=== PATIENT | male | born 1935 | race Two or more races ===

== ENCOUNTER 2016-10-19 16:44 | Emergency (ER) | payer MEDICAID, MEDICARE ==
[~2016-10-19] VITALS: Ht 157.5 cm; Wt 63.5 kg
[2016-10-19 17:28] LABS: Basophils # (auto) 0 uL; Basophils % (auto) 0.1 % (0.0-2.0); CONDITION Y; Eosinophils # (auto) 0 uL; Hematocrit 37.7 % (41.0-53.0); Hemoglobin 12.8 g/dL (13.5-17.5); Lymphocytes # (auto) 0.9 uL; Lymphocytes % (auto) 9.8 % (10.0-50.0); Mean Corpuscular Hemoglobin 29.8 pg (28.0-32.0); Mean Corpuscular Hgb Conc. 33.9 g/dL (32.0-36.0); Monocytes # (auto) 0.3 uL; Monocytes % (auto) 3.6 % (0.0-12.0); Neutrophils # (auto) 7.9 uL; Neutrophils % (auto) 86.5 % (37.0-80.0); Platelet Count (auto) 275 10^3/uL (140-450); Red Cell Distribution Width 15.1 % (11.6-16.0); White Blood Cell 9.1 10^3/uL (4.4-10.8)
[2016-10-19 20:08] LABS: Albumin 3.5 g/dL (3.4-5.0); Amylase 89 U/L (25-115); Anion Gap 10 (5-15); Aspartate Aminotransferase 26 U/L (15-37); Blood Urea Nitrogen 15 mg/dL (7-18); Calcium 7.7 mg/dL (8.5-10.1); Carbon Dioxide 23 mmol/L (21-32); Chloride 107 mmol/L (98-107); GFR African American 128 mL/min; GFR Non-African American 106 mL/min; Glucose 146 mg/dL (74-106); Potassium 3.8 mmol/L (3.5-5.1); Sodium 140 mmol/L (136-145)
[2016-10-19 20:19] LABS: Alkaline Phosphatase 111 U/L (45-117); Bilirubin, Total 0.3 mg/dL (0.2-1.0); Total Protein 7.6 g/dL (6.4-8.2)
[2016-10-20] MEDS ORDERED: ONDANSETRON HCL 4 MG/2 ML VIAL IV ONE (08:00)
[2016-10-20] MEDS ORDERED: MORPHINE SULF INJ 2 MG/ML SYRINGE 1ML IV ONE (08:00)
[2016-10-20 09:25] LABS: Urine Bilirubin Negative (Negative); Urine Color Yellow (Yellow); Urine Glucose Normal (Normal); Urine Ketone TRACE (Negative); Urine Mucus FEW (None Seen); Urine Nitrite Negative (Negative); Urine RBC 10 /hpf (0 - 3); Urine Squamous Epithelial Cell FEW /hpf (<5); Urine Urobilinogen Normal (Negative); Urine pH 5.5 (5.0-8.0)
[2016-10-20 09:26] LABS: Urine Blood 2+ /uL (Negative)
[2016-10-20 10:12] VITALS: BP 105/55
== END 2016-10-20 10:12 | disposition other institution (70) ==
LOC: ER 16:50
DX: K80.20 Calculus of gallbladder without cholecystitis without obstruction (principal); J98.11 Atelectasis; N40.1 Benign prostatic hyperplasia with lower urinary tract symptoms; R39.16 Straining to void; N28.1 Cyst of kidney, acquired; I11.0 Hypertensive heart disease with heart failure; I50.9 Heart failure, unspecified; Z87.442 Personal history of urinary calculi; Z87.440 Personal history of urinary (tract) infections
CPT/HCPCS: 36415; 74176; 80053; 81001; 82150; 83690; 84484; 85025; 93005; 96374; 96375; 99285; J2270; J2405

== ENCOUNTER 2016-10-22 09:14 | Inpatient (IN) | payer MEDICAID ==
[~2016-10-22] VITALS: Ht 160 cm; Wt 65.1 kg
[2016-10-22] MEDS ORDERED: SODIUM CHLORIDE 0.9% 1,000 ML IV ONE ×3 (10:00→12:30)
[2016-10-22] MEDS ORDERED: SODIUM CHLORIDE 0.9% 1,000 ML IVB ONE (10:27)
[2016-10-22 10:40] LABS: Basophils # (auto) 0 uL; CONDITION Y; Eosinophils # (auto) 0 uL; Hematocrit 34.2 % (41.0-53.0); Hemoglobin 11.7 g/dL (13.5-17.5); Lymphocytes # (auto) 0.3 uL; Lymphocytes % (auto) 2.5 % (10.0-50.0); Mean Corpuscular Hemoglobin 30.1 pg (28.0-32.0); Mean Corpuscular Hgb Conc. 34.3 g/dL (32.0-36.0); Mean Corpuscular Volume 87.8 fL (80.0-100.0); Mean Platelet Volume 8.9 fL (7.4-10.4); Monocytes # (auto) 0.3 uL; Monocytes % (auto) 2.9 % (0.0-12.0); Neutrophils # (auto) 9.9 uL; Neutrophils % (auto) 94.6 % (37.0-80.0); Platelet Count (auto) 160 10^3/uL (140-450); Red Cell Distribution Width 15.2 % (11.6-16.0); SUSPECT SEE PRINTOUT; White Blood Cell 10.5 10^3/uL (4.4-10.8)
[2016-10-22 10:59] LABS: Albumin 2.6 g/dL (3.4-5.0); BUN/Creatinine Ratio 18.1; Bilirubin, Total 2.2 mg/dL (0.2-1.0); Calcium 7.4 mg/dL (8.5-10.1); Magnesium 2.2 mg/dL (1.6-2.6); Potassium 3.2 mmol/L (3.5-5.1); Total Protein 6.1 g/dL (6.4-8.2)
[2016-10-22 11:29] LABS: REFLEX LACTIC ACID YES OR NO YES
[2016-10-22] MEDS ORDERED: POTASSIUM CHL 10% (20 MEQ/15ML) ORAL SOLN PO ONE (11:30)
[2016-10-22] MEDS ORDERED: cefTRIAXone 1GM/50ML D5W 50 ML IV ONE (11:30)
[2016-10-22] MEDS ORDERED: SODIUM CHLORIDE 0.9% 1,000 ML IV SCH (12:23)
[2016-10-22] MEDS ORDERED: NITROGLYCERIN 0.4 MG SL TAB SL PRN (12:30)
[2016-10-22] MEDS ORDERED: MORPHINE SULF INJ 2 MG/ML SYRINGE 1ML IV PRN ×2 (12:30)
[2016-10-22] MEDS ORDERED: PANTOPRAZOLE SODIUM 40 MG/10 ML VIAL IV ONE (12:30)
[2016-10-22] MEDS ORDERED: PROMETHAZINE HCL 25 MG/ML 1ML IV PRN (12:30)
[2016-10-22] MEDS ORDERED: PIPERACILLIN-TAZOB 3.375GM 100 ML IV ONE (12:30)
[2016-10-22] MEDS: NOREPINEPHRINE BITARTRATE 250 ML IV SCH (12:47)
[2016-10-22] MEDS ORDERED: metroNIDAZOLE 500MG/100ML 100 ML IV ONE (13:15)
[2016-10-22] MEDS ORDERED: MORPHINE SULFATE 4 MG/ML SYRG IV PRN ×2 (14:20→14:21)
[2016-10-22] MEDS: metroNIDAZOLE 500MG/100ML 100 ML IV SCH (18:43)
[2016-10-22] MEDS: PIPERACILLIN-TAZOB 3.375GM 100 ML IV SCH (18:43)
[2016-10-22 19:55] LABS: INR 1.2 (0.9-1.15); Partial Thromboplastin Time 32.7 sec (22.64-33.71)
[2016-10-22 20:04] LABS: Prothrombin Time 13.1 sec (9.37-12.3)
[2016-10-23] MEDS ORDERED: ALBUTEROL SULF 2.5 MG/0.5ML(0.5%) NEB SOLN ONE (00:59)
[2016-10-23] MEDS ORDERED: IPRATROPIUM BROM 0.5 MG/2.5ML INH SOL ONE (01:00)
[2016-10-23] MEDS ORDERED: DEXAMETHASONE SOD PHOS 4 MG/1ML SDV INJ ONE (02:58)
[2016-10-23 05:46] LABS: Temperature: 23.5 C (20.0-25.0)
[2016-10-23] MEDS: PIPERACILLIN-TAZOB 3.375GM 100 ML IV SCH ×4 (06:20→19:38)
[2016-10-23] MEDS: metroNIDAZOLE 500MG/100ML 100 ML IV SCH ×4 (06:20→18:43)
[2016-10-23 06:38] LABS: Albumin 2.3 g/dL (3.4-5.0); Bilirubin, Total 3.2 mg/dL (0.2-1.0); Calcium 6.9 mg/dL (8.5-10.1); Total Protein 5.8 g/dL (6.4-8.2)
[2016-10-23 08:27] LABS: Basophils # (auto) 0 uL; Eosinophils # (auto) 0 uL; Eosinophils % (auto) 0.2 % (0.0-7.0); Hematocrit 33.9 % (41.0-53.0); Hemoglobin 11.3 g/dL (13.5-17.5); Lymphocytes # (auto) 0.9 uL; Lymphocytes % (auto) 6.3 % (10.0-50.0); Mean Corpuscular Hemoglobin 29.9 pg (28.0-32.0); Mean Corpuscular Hgb Conc. 33.5 g/dL (32.0-36.0); Mean Corpuscular Volume 89.3 fL (80.0-100.0); Mean Platelet Volume 9.4 fL (7.4-10.4); Monocytes # (auto) 1.1 uL; Monocytes % (auto) 7.5 % (0.0-12.0); Neutrophils # (auto) 12.6 uL; Platelet Count (auto) 174 10^3/uL (140-450); Red Cell Distribution Width 15.5 % (11.6-16.0); White Blood Cell 14.7 10^3/uL (4.4-10.8)
[2016-10-23] MEDS: NOREPINEPHRINE BITARTRATE 250 ML IV SCH (12:00)
[2016-10-23] MEDS: PANTOPRAZOLE SODIUM 40 MG/10 ML VIAL IV SCH (12:00)
[2016-10-23] MEDS: SOD CHL 0.9%/ KCL 20MEQ 1,000 ML IV SCH ×2 (12:23→20:31)
[2016-10-24] MEDS: PIPERACILLIN-TAZOB 3.375GM 100 ML IV SCH ×5 (00:07→23:51)
[2016-10-24] MEDS: metroNIDAZOLE 500MG/100ML 100 ML IV SCH ×5 (00:07→23:50)
[2016-10-24 04:18] LABS: Albumin 2.1 g/dL (3.4-5.0); BUN/Creatinine Ratio 17.2; Bilirubin, Total 2.1 mg/dL (0.2-1.0); Calcium 7.4 mg/dL (8.5-10.1); Potassium 3.7 mmol/L (3.5-5.1); Total Protein 5.5 g/dL (6.4-8.2)
[2016-10-24] MEDS: SOD CHL 0.9%/ KCL 20MEQ 1,000 ML IV SCH ×2 (04:48→12:08)
[2016-10-24] MEDS: PANTOPRAZOLE SODIUM 40 MG/10 ML VIAL IV SCH (10:39)
[2016-10-24] MEDS: NOREPINEPHRINE BITARTRATE 250 ML IV SCH (12:00)
[2016-10-24 22:00] VITALS: BP 110/63
[2016-10-24] MEDS ORDERED: [UNRECOGNIZED DRUG - CODE] PO (23:14)
[2016-10-25] MEDS: SOD CHL 0.9%/ KCL 20MEQ 1,000 ML IV SCH ×4 (04:23→21:11)
[2016-10-25 05:00] VITALS: BP_SYST 113; BP_SYST 137; BP_DIAS 56; BP_DIAS 77
[2016-10-25] MEDS: metroNIDAZOLE 500MG/100ML 100 ML IV SCH ×4 (06:16→23:00)
[2016-10-25] MEDS: PIPERACILLIN-TAZOB 3.375GM 100 ML IV SCH ×3 (06:17→21:10)
[2016-10-25 08:00] VITALS: BP 119/57
[2016-10-25 09:45] VITALS: BP 119/57
[2016-10-25] MEDS: PANTOPRAZOLE SODIUM 40 MG/10 ML VIAL IV SCH (10:00)
[2016-10-25 14:54] VITALS: BP 116/62
[2016-10-25 16:51] VITALS: BP 134/65
[2016-10-25 22:00] VITALS: BP 112/59
[2016-10-26] MEDS: PIPERACILLIN-TAZOB 3.375GM 100 ML IV SCH ×4 (01:30→18:16)
[2016-10-26] MEDS: SOD CHL 0.9%/ KCL 20MEQ 1,000 ML IV SCH ×3 (04:57→23:08)
[2016-10-26 05:00] VITALS: BP 130/73
[2016-10-26] MEDS: metroNIDAZOLE 500MG/100ML 100 ML IV SCH ×4 (05:00→23:08)
[2016-10-26 08:00] VITALS: BP 118/70
[2016-10-26 08:48] VITALS: BP 118/70
[2016-10-26] MEDS: PANTOPRAZOLE SODIUM 40 MG/10 ML VIAL IV SCH (10:35)
[2016-10-26 12:22] VITALS: BP 128/73
[2016-10-26 16:07] VITALS: BP 127/77
[2016-10-26 22:00] VITALS: BP 122/76
[2016-10-27] MEDS: PIPERACILLIN-TAZOB 3.375GM 100 ML IV SCH ×4 (00:30→19:10)
[2016-10-27] MEDS: SOD CHL 0.9%/ KCL 20MEQ 1,000 ML IV SCH ×2 (04:50→12:23)
[2016-10-27] MEDS: metroNIDAZOLE 500MG/100ML 100 ML IV SCH ×4 (04:50→23:38)
[2016-10-27 05:57] VITALS: BP 108/65
[2016-10-27 09:00] VITALS: BP 109/67
[2016-10-27] MEDS: PANTOPRAZOLE SODIUM 40 MG/10 ML VIAL IV SCH (10:00)
[2016-10-27 12:49] VITALS: BP 128/78
[2016-10-27 17:00] VITALS: BP 107/58
[2016-10-27 22:00] VITALS: BP 106/68
[2016-10-28] VITALS (9 sets, daily range): BP systolic 111–132; BP diastolic 59–76
[2016-10-28] MEDS: PIPERACILLIN-TAZOB 3.375GM 100 ML IV SCH ×3 (01:29→12:31)
[2016-10-28] MEDS: SOD CHL 0.9%/ KCL 20MEQ 1,000 ML IV SCH ×3 (04:23→21:13)
[2016-10-28] MEDS: metroNIDAZOLE 500MG/100ML 100 ML IV SCH ×3 (05:24→18:54)
[2016-10-28 06:32] LABS: Basophils # (auto) 0 uL; Basophils % (auto) 0.5 % (0.0-2.0); CONDITION Y; Eosinophils # (auto) 0.3 uL; Eosinophils % (auto) 3.4 % (0.0-7.0); Hematocrit 35.1 % (41.0-53.0); Lymphocytes # (auto) 1.8 uL; Lymphocytes % (auto) 22.6 % (10.0-50.0); Mean Corpuscular Hemoglobin 29.8 pg (28.0-32.0); Mean Corpuscular Hgb Conc. 34.2 g/dL (32.0-36.0); Mean Platelet Volume 8.6 fL (7.4-10.4); Monocytes # (auto) 1.3 uL; Neutrophils # (auto) 4.5 uL; Neutrophils % (auto) 57.5 % (37.0-80.0); Platelet Count (auto) 296 10^3/uL (140-450); White Blood Cell 7.8 10^3/uL (4.4-10.8)
[2016-10-28 06:52] LABS: Albumin 2.4 g/dL (3.4-5.0); Calcium 7.7 mg/dL (8.5-10.1); Potassium 3.3 mmol/L (3.5-5.1)
[2016-10-28 07:01] LABS: INR 1.36 (0.9-1.15); Partial Thromboplastin Time 30.3 sec (22.64-33.71)
[2016-10-28 07:02] LABS: Prothrombin Time 14.9 sec (9.37-12.3)
[2016-10-28 07:06] LABS: Bilirubin, Total 0.9 mg/dL (0.2-1.0); Total Protein 6.2 g/dL (6.4-8.2)
[2016-10-28] MEDS: PANTOPRAZOLE SODIUM 40 MG/10 ML VIAL IV SCH (09:42)
[2016-10-28] MEDS ORDERED: PHYTONADIONE (VIT K)10 MG/ML 1ML VIAL SUBCUT ONE ×3 (11:00→23:00)
[2016-10-28] MEDS ORDERED: cefTRIAXone 1GM/50ML D5W 50 ML IV ONE (16:00)
[2016-10-28] MEDS ORDERED: diphenhdrAMINE HCL 50 MG/1 ML VL IV PRN (18:45)
[2016-10-29] MEDS: SOD CHL 0.9%/ KCL 20MEQ 1,000 ML IV SCH ×3 (04:51→22:20)
[2016-10-29 05:00] VITALS: BP 111/58
[2016-10-29 05:25] LABS: Basophils # (auto) 0 uL; Basophils % (auto) 0.4 % (0.0-2.0); CONDITION Y; Eosinophils # (auto) 0.3 uL; Eosinophils % (auto) 3.3 % (0.0-7.0); Hemoglobin 12.5 g/dL (13.5-17.5); Lymphocytes # (auto) 1.9 uL; Lymphocytes % (auto) 24.2 % (10.0-50.0); Mean Corpuscular Hemoglobin 29.6 pg (28.0-32.0); Mean Corpuscular Hgb Conc. 33.9 g/dL (32.0-36.0); Mean Corpuscular Volume 87.5 fL (80.0-100.0); Mean Platelet Volume 8.5 fL (7.4-10.4); Monocytes # (auto) 1.1 uL; Monocytes % (auto) 14.2 % (0.0-12.0); Neutrophils # (auto) 4.6 uL; Neutrophils % (auto) 57.9 % (37.0-80.0); Platelet Count (auto) 336 10^3/uL (140-450); White Blood Cell 7.9 10^3/uL (4.4-10.8)
[2016-10-29 05:35] LABS: INR 1.2 (0.9-1.15); Partial Thromboplastin Time 28.6 sec (22.64-33.71)
[2016-10-29 05:40] LABS: Prothrombin Time 13.1 sec (9.37-12.3)
[2016-10-29 05:42] LABS: Albumin 2.5 g/dL (3.4-5.0); BUN/Creatinine Ratio 7.5; Calcium 7.7 mg/dL (8.5-10.1); Potassium 3.9 mmol/L (3.5-5.1)
[2016-10-29 05:45] LABS: Bilirubin, Total 0.7 mg/dL (0.2-1.0); Total Protein 6.7 g/dL (6.4-8.2)
[2016-10-29] MEDS: metroNIDAZOLE 500MG/100ML 100 ML IV SCH ×4 (06:23→18:36)
[2016-10-29 08:57] VITALS: BP 110/69
[2016-10-29] MEDS: PANTOPRAZOLE SODIUM 40 MG/10 ML VIAL IV SCH (10:33)
[2016-10-29] MEDS: cefTRIAXone 1GM/50ML D5W 50 ML IV SCH (10:33)
[2016-10-29] MEDS ORDERED: ONDANSETRON HCL 4 MG/2 ML VIAL IV ONE ×2 (11:40→13:15)
[2016-10-29] MEDS ORDERED: LIDOCAINE HCL 2 %PF INJ 10ML AMP IJ ONE (11:40)
[2016-10-29] MEDS ORDERED: PROPOFOL 10 MG/ML 20 ML IV ONE (11:40)
[2016-10-29] MEDS ORDERED: ROCURONIUM 10MG/ML 10ML VIAL IV ONE (11:40)
[2016-10-29] MEDS ORDERED: GLYCOPYRROLATE 0.2 MG/ML 1ML VIAL IV ONE (11:40)
[2016-10-29] MEDS ORDERED: DEXAMETHASONE SOD PHOS 10MG/1ML VIAL INJ ONE (12:39)
[2016-10-29] MEDS ORDERED: fentaNYL CITRATE 100 MCG/2 ML VL ONE (12:42)
[2016-10-29] MEDS ORDERED: ALBUTEROL SULF 2.5 MG/0.5ML(0.5%) NEB SOLN NEB STA ×2 (12:59→13:00)
[2016-10-29] MEDS ORDERED: ALBUTEROL SULF 2.5 MG/0.5ML(0.5%) NEB SOLN ONE (13:04)
[2016-10-29] MEDS ORDERED: METOCLOPRAMIDE HCL 5MG/ml INJ 2ml VIAL IV ONE (13:15)
[2016-10-29 16:26] VITALS: BP 89/55
[2016-10-29 20:10] LABS: CONDITION Y; Hematocrit 30.4 % (41.0-53.0); Hemoglobin 10.3 g/dL (13.5-17.5); Mean Corpuscular Hemoglobin 29.5 pg (28.0-32.0); Mean Corpuscular Hgb Conc. 33.8 g/dL (32.0-36.0); Mean Corpuscular Volume 87.4 fL (80.0-100.0); Mean Platelet Volume 8.3 fL (7.4-10.4); Platelet Count (auto) 332 10^3/uL (140-450); Red Cell Distribution Width 16.7 % (11.6-16.0); SUSPECT SEE PRINTOUT; White Blood Cell 24.8 10^3/uL (4.4-10.8)
[2016-10-29 20:16] LABS: Metamyelocytes % 0; Myelocytes % 0; Promyelocytes % 0; Reactive Lymphocytes 0
[2016-10-29 21:02] LABS: Anisocytosis Slight; Platelet Estimate Adequate
[2016-10-29 22:00] VITALS: BP 101/56
[2016-10-30] MEDS: metroNIDAZOLE 500MG/100ML 100 ML IV SCH ×4 (00:29→17:51)
[2016-10-30] MEDS: SOD CHL 0.9%/ KCL 20MEQ 1,000 ML IV SCH ×2 (04:47→17:52)
[2016-10-30 05:00] VITALS: BP 100/63
[2016-10-30 06:47] LABS: CONDITION Y; Hematocrit 27.8 % (41.0-53.0); Hemoglobin 9.4 g/dL (13.5-17.5); Mean Corpuscular Hemoglobin 29.8 pg (28.0-32.0); Mean Corpuscular Hgb Conc. 33.7 g/dL (32.0-36.0); Mean Corpuscular Volume 88.3 fL (80.0-100.0); Mean Platelet Volume 8.5 fL (7.4-10.4); Platelet Count (auto) 319 10^3/uL (140-450); Red Cell Distribution Width 16.7 % (11.6-16.0); SUSPECT SEE PRINTOUT; White Blood Cell 23.8 10^3/uL (4.4-10.8)
[2016-10-30 07:01] LABS: Metamyelocytes % 0; Myelocytes % 0; Promyelocytes % 0; Reactive Lymphocytes 0
[2016-10-30 07:42] LABS: Anisocytosis Slight; Platelet Estimate Adequate
[2016-10-30 08:52] VITALS: BP 100/52
[2016-10-30] MEDS: cefTRIAXone 1GM/50ML D5W 50 ML IV SCH (11:00)
[2016-10-30] MEDS: PANTOPRAZOLE SODIUM 40 MG/10 ML VIAL IV SCH (11:00)
[2016-10-30 13:00] VITALS: BP 104/59
[2016-10-30 16:28] VITALS: BP 113/63
[2016-10-30 20:00] VITALS: BP 105/60
[2016-10-30 22:00] VITALS: BP 105/60
[2016-10-31] MEDS: metroNIDAZOLE 500MG/100ML 100 ML IV SCH ×3 (00:05→12:36)
[2016-10-31] MEDS: SOD CHL 0.9%/ KCL 20MEQ 1,000 ML IV SCH ×3 (03:38→12:23)
[2016-10-31 05:00] VITALS: BP 114/67
[2016-10-31 05:20] LABS: Basophils # (auto) 0 uL; Basophils % (auto) 0.1 % (0.0-2.0); CONDITION Y; DEFINITIVE SEE PRINTOUT; Eosinophils # (auto) 0 uL; Hematocrit 23.7 % (41.0-53.0); Lymphocytes # (auto) 1.6 uL; Lymphocytes % (auto) 9.8 % (10.0-50.0); Mean Corpuscular Hemoglobin 29.7 pg (28.0-32.0); Mean Corpuscular Hgb Conc. 33.7 g/dL (32.0-36.0); Mean Corpuscular Volume 88.2 fL (80.0-100.0); Mean Platelet Volume 8.4 fL (7.4-10.4); Monocytes # (auto) 0.9 uL; Monocytes % (auto) 5.2 % (0.0-12.0); Neutrophils % (auto) 84.9 % (37.0-80.0); Platelet Count (auto) 284 10^3/uL (140-450); Red Cell Distribution Width 16.8 % (11.6-16.0); White Blood Cell 16.5 10^3/uL (4.4-10.8)
[2016-10-31 05:44] LABS: Albumin 2.1 g/dL (3.4-5.0); BUN/Creatinine Ratio 15.3; Bilirubin, Total 0.9 mg/dL (0.2-1.0); Calcium 7.1 mg/dL (8.5-10.1); Potassium 3.9 mmol/L (3.5-5.1); Total Protein 5.5 g/dL (6.4-8.2)
[2016-10-31 08:00] VITALS: BP 116/66
[2016-10-31 08:52] VITALS: BP 116/66
[2016-10-31] MEDS: PANTOPRAZOLE SODIUM 40 MG/10 ML VIAL IV SCH (09:40)
[2016-10-31] MEDS: cefTRIAXone 1GM/50ML D5W 50 ML IV SCH (09:40)
[2016-10-31 14:40] VITALS: BP 100/56
[2016-10-31 15:22] VITALS: BP 100/56
== END 2016-10-31 16:20 | disposition home or self-care (01) | DRG 263 ==
LOC: ER 09:14 → EDBD 09:14 → TELE 09:15 → TELE-EAST 10-24 13:33 → TELE-E-ADS 10-24 14:29 → EAST 10-24 16:52 → TELE-EAST 10-24 22:05
PROVIDERS: ADMIT Internal Medicine; ATTEND Internal Medicine
PROC: 30233L1 Transfusion of Nonautologous Fresh Plasma into Peripheral Vein, Percutaneous Approach (ICD-10-PCS; 2016-10-28)
PROC: 30233K1 Transfusion of Nonautologous Frozen Plasma into Peripheral Vein, Percutaneous Approach (ICD-10-PCS; 2016-10-28)
PROC: 0FT44ZZ Resection of Gallbladder, Percutaneous Endoscopic Approach (ICD-10-PCS; principal; 2016-10-29 11:28)
DX: K80.00 Calculus of gallbladder with acute cholecystitis without obstruction (principal); E43 Unspecified severe protein-calorie malnutrition; I95.9 Hypotension, unspecified; I11.0 Hypertensive heart disease with heart failure; I50.9 Heart failure, unspecified; D64.9 Anemia, unspecified; N28.1 Cyst of kidney, acquired; E87.6 Hypokalemia; N28.9 Disorder of kidney and ureter, unspecified; N40.0 Benign prostatic hyperplasia without lower urinary tract symptoms; Z87.442 Personal history of urinary calculi; Z68.25 Body mass index [BMI] 25.0-25.9, adult
CPT/HCPCS: 36415; 71010; 74176; 74181; 78226; 80053; 82150; 82247; 82550; 83605; 83690; 83735; 83880; 84443; 84484; 85007; 85025; 85027; 85610; 85730; 86850; 86900; 86901; 87040; 93005; 93306; 94640; 94761; 96361; 96365; C9113; J0696; J1100; J2405; J2543; J2704; J3430; J3490

== ENCOUNTER 2021-06-30 14:01 | Emergency (ER) | payer SELFPAY ==
[~2021-06-30] VITALS: Ht 160 cm; Wt 64.4 kg
[~2021-06-30 14:01] MED LIST: [UNRECOGNIZED DRUG - CODE] PO
[2021-06-30] MEDS ORDERED: cefTRIAXone SOD 1,000 MG VL IM ONE (16:45)
[2021-06-30] MEDS ORDERED: TETANUS-DIPTH-ACEL PERTUSSIS 0.5ML SYR Tdap IM ONE (16:45)
[2021-06-30 17:16] VITALS: BP 138/75
== END 2021-06-30 17:33 | disposition home or self-care (01) ==
LOC: ER 14:01
DX: S09.90XA Unspecified injury of head, initial encounter (principal); S00.81XA Abrasion of other part of head, initial encounter; I11.0 Hypertensive heart disease with heart failure; I50.9 Heart failure, unspecified; W01.0XXA Fall on same level from slipping, tripping and stumbling without subsequent striking against object, initial encounter; Y93.89 Activity, other specified; Y92.89 Other specified places as the place of occurrence of the external cause; Y99.8 Other external cause status
CPT/HCPCS: 70450; 72125; 73562; 90471; 90715; 96372; 99284; J0696

== ENCOUNTER 2022-07-15 07:28 | Emergency (ER) | payer MEDICAID ==
[~2022-07-15] VITALS: Ht 160 cm; Wt 58.0 kg
[2022-07-15 08:08] LABS: Urine Bacteria NONE SEEN /hpf (None Seen); Urine Blood Negative /uL (Negative); Urine Specific Gravity 1.008 (1.001-1.035); Urine WBC 1 /hpf (0 - 3)
[2022-07-15 08:16] LABS: Basophils # (auto) 0 10 ^3/uL (0-0.2); Basophils % (auto) 0.5 % (0.0-2.0); Eosinophils # (auto) 0.2 10 ^3/uL (0-0.8); Eosinophils % (auto) 2.9 % (0.0-7.0); Hematocrit 36.3 % (41.0-53.0); Hemoglobin 12.4 g/dL (13.5-17.5); Lymphocytes # (auto) 1.5 10 ^3/uL (0.4-5.4); Lymphocytes % (auto) 21.7 % (10.0-50.0); Mean Corpuscular Hemoglobin 30.2 pg (28.0-32.0); Mean Corpuscular Volume 88.7 fL (80.0-100.0); Monocytes # (auto) 0.9 10 ^3/uL (0-1.3); Monocytes % (auto) 12.4 % (0.0-12.0); Neutrophils # (auto) 4.4 10 ^3/uL (1.6-8.6); Neutrophils % (auto) 62.5 % (37.0-80.0); Nucleated Red Blood Cells % 0.1 %; Red Cell Distribution Width 13.8 % (11.8-14.3)
[2022-07-15] MEDS ORDERED: LIDOCAINE 2% JELLY 11ml (GLYDO) UR ONE (08:30)
[2022-07-15 08:37] LABS: Albumin 3.3 g/dL (3.4-5.0); Calcium 8.3 mg/dL (8.5-10.1); Potassium 4.3 mmol/L (3.5-5.1)
[2022-07-15 08:41] LABS: Bilirubin, Total 0.5 mg/dL (0.2-1.0)
[2022-07-15 09:08] VITALS: BP 130/75
[2022-07-20] MEDS ORDERED: CEPH-510 PO (18:43)
== END 2022-07-15 10:12 | disposition home or self-care (01) ==
LOC: ER 07:28
DX: N40.0 Benign prostatic hyperplasia without lower urinary tract symptoms (principal); I11.0 Hypertensive heart disease with heart failure; I50.9 Heart failure, unspecified; Z79.899 Other long term (current) drug therapy
CPT/HCPCS: 36415; 51702; 80053; 81001; 84154; 84484; 85025

== ENCOUNTER 2022-07-18 17:04 | Emergency (ER) | payer MEDICAID ==
[~2022-07-18] VITALS: Ht 157.5 cm; Wt 60.4 kg
[2022-07-18 20:07] LABS: Urine Bacteria FEW /hpf (None Seen); Urine Blood 1+ /uL (Negative); Urine Specific Gravity 1.004 (1.001-1.035); Urine WBC 4 /hpf (0 - 3)
[2022-07-18] MEDS ORDERED: CEPH-510 PO ×3 (20:23→20:24)
[2022-07-18 20:50] VITALS: BP 140/78
[2022-07-20] MEDS ORDERED: CEPH-510 PO (18:43)
== END 2022-07-18 20:50 | disposition home or self-care (01) ==
LOC: ER 17:04
DX: T83.9XXA Unspecified complication of genitourinary prosthetic device, implant and graft, initial encounter (principal); T83.511A Infection and inflammatory reaction due to indwelling urethral catheter, initial encounter; Z90.49 Acquired absence of other specified parts of digestive tract; Z91.14 Patient's other noncompliance with medication regimen
CPT/HCPCS: 81001